=== PATIENT | male | born 1985 | race Caucasian/White ===

== ENCOUNTER 2017-03-22 13:06 | Emergency (ER) | payer SELFPAY ==
[~2017-03-22] VITALS: Ht 167.6 cm; Wt 74.8 kg
[~2017-03-22 13:06] MED LIST: ALPR1TAB2 PO
[2017-03-22 13:31] VITALS: BP 130/73
--- NOTE | 2017-03-22 14:38 | NUR ---
PT AMBULATED TO BED 4 AT THIS TIME.
--- NOTE | 2017-03-22 14:40 | NUR ---
31M BIB SELF C/O BL THROAT PAIN, THROBBING, RADIATES TO BL EAR, 07/26 X 5 DAYS; PT C/O DRY COUGH, BL LUNG SOUNDS CLEAR, RR EVEN/UNLABORED AT THIS TIME; A&OX4, PERRLA, SKIN IS WARM/DRY/INTACT; PT DENIES N/V/D AT THIS TIME; NO DRAINAGE OR BLEEDING TO BL EARS AT THIS TIME; PT RESTING IN BED W/ HOB ELEVATED AND IN LOWEST POSITION; POSITIONED FOR COMFORT; ER MD MADE AWARE OF STATUS. WILL CONTINUE TO MONITOR.
--- NOTE | 2017-03-22 15:00 | NUR ---
Patient being evaluated by physician at bedside.
[2017-03-22 15:21] VITALS: BP 120/68
--- NOTE | 2017-03-22 15:21 | NUR ---
Patient discharged with v/s stable. Written and verbal after care instructions given and explained. Patient alert, oriented and verbalized understanding of instructions. Ambulatory with to car. All questions addressed prior to discharge. ID band removed. Patient advised to follow up with PMD. Rx of BACTRIM DS 800MG-160MG TAB & MOTRIN 800MG TAB given. Patient educated on indication of medication including possible reaction and side effects. Opportunity to ask questions provided and answered.
== END 2017-03-22 15:21 | disposition home or self-care (01) ==
LOC: MED 13:06
DX: J11.1 Influenza due to unidentified influenza virus with other respiratory manifestations (principal)
CPT/HCPCS: 99283

== ENCOUNTER 2018-09-20 10:01 | Emergency (ER) | payer SELFPAY ==
[~2018-09-20] VITALS: Ht 167.6 cm; Wt 73.2 kg
[2018-09-20 10:10] VITALS: BP 133/84
--- NOTE | 2018-09-20 10:11 | NUR ---
PT AMBULATES TO BED 12
--- NOTE | 2018-09-20 10:17 | NUR ---
PT. CAME INTO THE ED C/O RT SHOULDER PAIN RADIATING TO THE RT ARM WITH TINGLING SENSATION ON THE RT FINGERS X 2 DAYS; DENIES INJURY; ABLE TO RAISE RT ARM ABOVE HIS RT SHOULDER. 8/10 TINGLING AND SHARP PAIN THAT RADIATES TO RT ARM. DENIES N/V/D. NO BRUISING NOTED OR WOUNDS. ER MD MADE AWARE. WILL CONTINUE TO MONITOR. SAFETY RPECAUTIONS IMPLEMENTED.
--- NOTE | 2018-09-20 11:20 | NUR ---
PT. RESTING COMFORTABLY IN BED, RR EVEN AND UNLABORED. VSS. FAMILY MEMBER AT BEDSIDE
[2018-09-20 11:35] VITALS: BP 123/75
== END 2018-09-20 11:35 | disposition home or self-care (01) ==
LOC: MED 10:01
DX: M54.12 Radiculopathy, cervical region (principal); M25.511 Pain in right shoulder; Z79.899 Other long term (current) drug therapy
CPT/HCPCS: 72040; 73030; 99284